=== PATIENT | female | born 2000 | race American Indian/Alaskan Native ===

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

== ENCOUNTER 2021-03-12 09:14 | Emergency (ER) | payer MEDICAID ==
[2021-03-12 09:23] VITALS: BP 117/62
[2021-03-12] MEDS ORDERED: ACETAMINOPHEN 325 MG TAB PO ONE (10:27)
[2021-03-12] MEDS ORDERED: FAMOTIDINE 20 MG TAB PO ONE (10:27)
--- NOTE | 2021-03-12 10:27 | Emergency Department Report ---
ED Chest Pain HPI - General Chief Complaint: Chest Pain Stated Complaint: chest pain, left breast pain cough Time Seen by Provider: 03/12/21 10:15 Source: patient Mode of arrival: Ambulatory Limitations: No Limitations - History of Present Illness Initial Comments: 21-year-old female with a past medical history of tobacco use and anemia presents to the ER today with complaints of left-sided chest/rib pain. Patient states that she has been having pain underneath her left breast intermittently for the past 4 months and then today she started having pain in her left upper chest also intermittent in nature. She describes both pain as sharp in nature and sometimes worse when she takes a deep breath. She states that she had a dry cough earlier but this has improved since arriving to the ER. She did vomit once earlier. She denies any associated shortness of breath, wheezing or abdominal pain. She reports soreness to left breast but no nipple discharge or mass. She states that she do do some strenuous activity at work but denies any injury to her chest. She states that this is her first time getting this chest pain checked out. She denies any calf pain or lower extremity swelling. She denies any history of heart disease, lung disease, PE or DVT. She is not currently on any control. She denies any family history of heart disease. MD Complaint: chest pain -: days(s) - Related Data Previous Rx's Medication Instructions Recorded Last Taken Type Promethazine [Phenergan TAB] 25 mg PO Q6HR PRN #8 tab 05/20/18 Unknown Rx Acetaminophen [Acetaminophen 8 650 mg PO Q8HR #30 tablet.er 03/12/21 Unknown Rx Hour] Ondansetron [Zofran Odt] 4 mg PO Q8HR #12 tab.rapdis 03/12/21 Unknown Rx raNITIdine HCl [Zantac] 150 mg PO BID #30 tablet 03/12/21 Unknown Rx Allergies Allergy/AdvReac Type Severity Reaction Status Date / Time No Known Allergies Allergy Verified 04/03/18 16:58 Heart Score - HEART Score History: Slightly suspicious EKG: Normal Age: < 45 Risk factors: 1-2 risk factors Troponin: < normal limit HEART Score: 1 - EKG Read Time Time EKG Completed: 09:33 EKG Read Time: 09:39 - Critical Actions Critical Actions: 0-3 pts:0.9-1.7%risk of adverse cardiac event.Candidate for discharge ED Review of Systems ROS: Stated complaint: chest pain, left breast pain cough Other details as noted in HPI Comment: All other systems reviewed and negative Constitutional: denies: chills, diaphoresis, fever, malaise, weakness Eyes: denies: eye pain, eye discharge, vision change ENT: denies: ear pain, throat pain Respiratory: cough. denies: shortness of breath, SOB with exertion, SOB at rest, wheezing Cardiovascular: chest pain. denies: palpitations, dyspnea on exertion, edema, syncope, paroxysmal nocturnal dyspnea Gastrointestinal: denies: abdominal pain, nausea, diarrhea, constipation, hematemesis, melena, hematochezia Genitourinary: denies: urgency, dysuria, frequency, hematuria, discharge, abnormal menses, dyspareunia Skin: denies: rash, lesions, change in color, change in hair/nails, pruritus Neurological: denies: headache, weakness, numbness, paresthesias, confusion, abnormal gait, vertigo Psychiatric: denies: anxiety, depression, auditory hallucinations, visual hallucinations, homicidal thoughts, suicidal thoughts Hematological/Lymphatic: denies: easy bleeding, easy bruising, swollen glands ED Past Medical Hx - Past Medical History Previous Medical History?: Yes Hx Hypertension: No Hx Heart Attack/AMI: No Hx Congestive Heart Failure: No Hx Diabetes: No Hx Deep Vein Thrombosis: No Hx Pulmonary Embolism: No Hx Seizures: No Hx Asthma: No Hx COPD: No Hx Tuberculosis: No Hx Dementia: No Hx HIV: No Additional medical history: anemia - Surgical History Past Surgical History?: Yes Hx Coronary Stent: No Hx Pacemaker: No Hx Internal Defibrillator: No Additional Surgical History: Tonsill and adnoids removed - Social History Smoking Status: Never Smoker - Medications Home Medications: Home Medications Medication Instructions Recorded Confirmed Last Taken Type Promethazine [Phenergan TAB] 25 mg PO Q6HR PRN #8 tab 05/20/18 Unknown Rx Acetaminophen [Acetaminophen 8 650 mg PO Q8HR #30 tablet.er 03/12/21 Unknown Rx Hour] Ondansetron [Zofran Odt] 4 mg PO Q8HR #12 tab.rapdis 03/12/21 Unknown Rx raNITIdine HCl [Zantac] 150 mg PO BID #30 tablet 03/12/21 Unknown Rx ED Physical Exam - General Limitations: No Limitations General appearance: alert, in no apparent distress - Head Head exam: Present: atraumatic, normocephalic, normal inspection - Eye Eye exam: Present: normal appearance, PERRL, EOMI Pupils: Present: normal accommodation - ENT ENT exam: Present: normal exam, mucous membranes moist - Neck Neck exam: Present: normal inspection, full ROM. Absent: meningismus - Respiratory Respiratory exam: Present: normal lung sounds bilaterally, chest wall tenderness (Mild tenderness to palpation to the chest wall just underneath the left breast.). Absent: respiratory distress, wheezes, rales, rhonchi - Cardiovascular Cardiovascular Exam: Present: regular rate, normal rhythm, normal heart sounds - GI/Abdominal GI/Abdominal exam: Present: soft, tenderness (Mild tenderness palpation epigastric and left upper quadrant without any guarding or rebound). Absent: distended, guarding, rebound - Extremities Exam Extremities exam: Present: normal inspection, full ROM. Absent: tenderness, pedal edema, calf tenderness - Neurological Exam Neurological exam: Present: alert, oriented X3, CN II-XII intact, normal gait - Psychiatric Psychiatric exam: Present: normal affect, normal mood - Skin Skin exam: Present: intact - Other Other exam information: Bilateral breast exam normal. ED Course Vital Signs 03/12/21 09:20 Temperature 98.2 F Pulse Rate 83 Respiratory 18 Rate Blood Pressure 117/62 O2 Sat by Pulse 100 Oximetry KERMIT score - Kermit Score Age > 65: (0) No Aspirin use within the Past 7 Days: (0) No 3 or more CAD Risk Factors: (0) No 2 or more Angina events in past 24 hrs: (0) No Known CAD with more than 50% Stenosis: (0) No Elevated Cardiac Markers: (0) No ST Deviation Greater than 0.5mm: (0) No KERMIT Score: 0 ED Medical Decision Making - Lab Data Result diagrams: 03/12/21 10:29 - EKG Data EKG shows normal: sinus rhythm Rate: normal (70) - EKG Data Interpretation: normal EKG - Radiology Data Radiology results: report reviewed interpreted by me: Patient: SILVIANO GRIFFIN MR#: [id number] : 2000 Acct:[id number] Age/Sex: 21 / F ADM Date: 03/12/21 Loc: ED Attending Dr: Ordering Physician: JOSE ALFREDO WARE Date of Service: 03/12/21 Procedure(s): XR chest routine 2V Accession Number(s): [id number] cc: JOSE ALFREDO WARE Fluoro Time In Minutes: CHEST 2 VIEWS INDICATION / CLINICAL INFORMATION: Chest pain. COMPARISON: None available. FINDINGS: SUPPORT DEVICES: None. HEART / MEDIASTINUM: No significant abnormality. LUNGS / PLEURA: No significant pulmonary or pleural abnormality. No pneumothorax. ADDITIONAL FINDINGS: No significant additional findings. IMPRESSION: 1. No acute findings. Signer Name: Osbaldo Salcedo MD Signed: 03/12/2021 11:40 AM Workstation Name: [id number] Transcribed By: DT Dictated By: Raimundo Salcedo MD Electronically Authenticated By: Raimundo Salcedo MD Signed Date/Time: 03/12/21 1140 DD/ 1140 TD/TT: - Medical Decision Making 1228: All labs reviewed and unremarkable including normal stroke. EKG shows normal sinus rhythm with a heart rate of 70 but no STEMI or any other acute ischemic changes or significant dysrhythmias. Chest x-ray shows nothing acute. Patient is currently resting comfortably. She is not toxic or ill-appearing. S he is neurologically intact. Her vital signs have been stable. She appears well-hydrated. She is not in any acute pain or respiratory distress. He has a heart score of 1. PERC score of 0. Her history, exam, diagnostic testing and current condition do not suggest that this patient is having acute myocardial infarction, significant arrhythmia, unstable angina, esophageal perforation, pulmonary embolism, aortic dissection, pneumothorax, severe pneumonia, sepsis or other significant pathology that would warrant further testing, continued ED treatment, admission or cardiology or other specialist consultation at this time. Pain could be musculoskeletal at this time other than related to reflux disease. Discussed lab results, chest x-ray results and EKG results with patient. Discussed suspected diagnosis and treatment plan with patient recommend that she follows up closely with primary care doctor. Patient expressed understanding of instructions and agree with plan. Patient was stable at time of discharge. Critical care attestation.: If time is entered above; I have spent that time in minutes in the direct care of this critically ill patient, excluding procedure time. ED Disposition Clinical Impression: Chest pain, atypical, Chest wall pain, Nipple soreness Disposition: DC-01 TO HOME OR SELFCARE Is pt being admited?: No Does the pt Need Aspirin: No Condition: Stable Instructions: Breast Tenderness, Nonspecific Chest Pain, Adult Additional Instructions: Take the tylenol, pepcid and zofran as prescribed. I recommend following up with PCP listed on discharge instructions. Recommend that you follow-up with [facility] listed on your discharge instruction for outpatient mammogram if you continue to have any breast issues. Return to the ER if your symptoms changes or worsens in any way. Prescriptions: Acetaminophen [Acetaminophen 8 Hour] 650 mg PO Q8HR #30 tablet.er raNITIdine HCl [Zantac] 150 mg PO BID #30 tablet Ondansetron [Zofran Odt] 4 mg PO Q8HR #12 tab.rapdis Referrals: VASU VILLEGAS MD [Staff Physician] - 3-5 Days [facility] [Provider Group] - 3-5 Days [facility] [Provider Group] - 3-5 Days [facility] [Provider Group] - 3-5 Days Forms: Work/School Release Form(ED) Time of Disposition: 12:18
[2021-03-12 10:53] LABS: HCG Qualitative,Urine Negative (Negative)
[2021-03-12 11:02] LABS: Alanine Aminotransferase 5 units/L (7-56); Blood Urea Nitrogen 6 mg/dL (7-17); Calcium 8.8 mg/dL (8.4-10.2); Hemolysis Index 0
[2021-03-12 11:03] LABS: BUN/Creatinine Ratio 10
--- NOTE | 2021-03-12 11:45 | XRay Report ---
CHEST 2 VIEWS INDICATION / CLINICAL INFORMATION: Chest pain. COMPARISON: None available. FINDINGS: SUPPORT DEVICES: None. HEART / MEDIASTINUM: No significant abnormality. LUNGS / PLEURA: No significant pulmonary or pleural abnormality. No pneumothorax. ADDITIONAL FINDINGS: No significant additional findings. IMPRESSION: 1. No acute findings. Signer Name: Osbaldo Salcedo MD Signed: 03/12/2021 11:40 AM Workstation Name: [id number]
[2021-03-12 11:52] LABS: Mean Corpuscular HGB Conc 28 % (30-34); Platelet Count 344 K/mm3 (140-440); Red Blood Count 3.91 M/mm3 (3.65-5.03)
[2021-03-12 12:38] LABS: Hematocrit 22.6 % (30.3-42.9); Hemoglobin 6.2 gm/dl (10.1-14.3); Mean Corpuscular Volume 58 fl (79-97)
[2021-03-12 12:39] LABS: Red Cell Distribution Width 20.7 % (13.2-15.2)
[2021-03-12 15:26] LABS: Total Cells Counted 100
[2021-03-12 15:30] LABS: Anisocytosis 3+
[2021-03-12 15:31] LABS: Poikilocytosis 3+
[2021-03-12 15:32] LABS: Hypochromasia 3+; Platelet Morphology N; Spherocytes 1+; Target Cells 1+
[2021-03-12 15:33] LABS: Platelet Estimate Consistent w Auto
--- NOTE | 2021-03-14 09:43 | Electrocardiograph Report ---
[facility] Test Date: 2021-03-12 Test Time: 09:33:28 Pat Name: SILVIANO GRIFFIN Department: Room: Gender: F Tong Hooker: ROLO : 2000 Requested By: ED DOC Order Number: [id number] Reading MD: Karl Madera Measurements Intervals [place] Rate: 70 P: 57 HI: 145 QRS: 68 QRSD: 82 T: 36 QT: 389 QTc: 420 Interpretive Statements Sinus rhythm No previous ECG available for comparison Electronically Signed On 03-14-2021 9:42:48 EDT by Karl Madera
== END 2021-03-12 12:52 | disposition home or self-care (01) ==
LOC: ED 09:14
DX: N64.4 Mastodynia (principal); R07.89 Other chest pain; Z98.890 Other specified postprocedural states; Z79.899 Other long term (current) drug therapy
CPT/HCPCS: 36415; 71046; 80053; 81025; 83690; 84484; 85007; 85025; 93005